=== PATIENT | male | born 1935 | race Caucasian/White ===

== ENCOUNTER → 2016-07-10 | Day surgery (SDC) | payer MEDICARE, BC ==
[~2016-07-10] MED LIST: IOHEXOL 180 MG/ML 20 ML VIAL (for RAD DIAG) ONE; LACTATED RINGER'S 1000 ML INJ 1,000 ML ONE; LIDOCAINE 1%/EPINEPHrine 1:100,000 SOLN 30 ML VIAL ONE; PROPOFOL 100 MG/10 ML INJ IV ONE; TRIAMCINOLONE ACETONIDE 40 MG/ML VIAL ONE
--- NOTE | 2016-07-10 15:50 | TN ---
cc: AGNES IBANEZ DATE OF SURGERY: 07/10/2016. PREOPERATIVE DIAGNOSIS: 1. Osteoarthritis of the right hip. 2. Arthrofibrosis of the right hip. POSTOPERATIVE DIAGNOSIS: 1. Osteoarthritis of the right hip. 2. Arthrofibrosis of the right hip. OPERATIVE PROCEDURE PERFORMED: 1. Manipulation right hip under anesthesia. 2. Arthrogram of the right hip. 3. Use of fluoroscopy for percutaneous guidance 4. Injection right hip with Kenalog, 40 milligrams. 5. Right hip x-ray two views, intraoperative. SURGEON: Agnes Ibanez MD. ANESTHESIA: TIVA. ESTIMATED BLOOD LOSS: Minimal. INDICATIONS FOR THE PROCEDURE: This patient is an 80-year-old white male with significant right hip pain. Investigative studies show that there is evidence of moderate to severe arthritis right hip with loss of range of motion. The patient also has a lumbar spine condition with degenerative changes and a CT scan suspicious for evidence of a disk herniation to the right at that level. The patient is having such significant pain that he presents for surgical treatment. The patient has had physical therapy. The patient cannot have NSAIDs because of cardiovascular disease and use of anticoagulants. DESCRIPTION OF THE PROCEDURE IN DETAIL: The patient was brought to the operating room and given limited sedation. The right hip was scrubbed with alcohol followed by Hibiclens followed Chloraprep and draped sterilely. Antibiotics were held. The right hip was manipulated under anesthesia. Range of motion: extension 0, flexion 80, internal rotation 26, external rotation 30, adduction 10, abduction 20. After manipulation, range of motion was: Extension 0, flexion 100, internal rotation 30, external rotation 45, abduction 35, adduction 20. A 22-gauge spinal needle was advanced down to the anterior aspect of the right hip joint. Contrast was instilled. It showed inflammatory changes. No pitting and no erosive changes were seen. No leak of contrast was noted. We injected 40 mg of Kenalog with 3 cc of 1% lidocaine plain. The hip was run through a second range of motion. Intraoperative x-rays were obtained showing the change on the arthrogram. There was no evidence of a fracture. The patient was awakened and taken to the recovery room in satisfactory condition. Agnes MD JORY Ly/NICCI /3:31 PM /3:44 PM
== END | disposition home or self-care (01) ==
LOC: ESDC 12:39
PROVIDERS: ATTEND Orthopaedic Surgery Orthopaedic Surgery of the Spine
DX: M16.11 Unilateral primary osteoarthritis, right hip (principal); M24.651 Ankylosis, right hip
CPT/HCPCS: 01200; 27275; 73502; J3010; J3301; J7120; Q9965